=== PATIENT | female | born 1940 | race Two or more races ===

== ENCOUNTER 2024-07-03 18:42 | Emergency (ER) | payer MEDICARE, OTHER ==
[~2024-07-03] VITALS: Ht 149.9 cm; Wt 66.0 kg
[2024-07-03 18:57] VITALS: TEMP 98.8
[2024-07-03 19:17] LABS: BASOPHILS % (AUTO) 0.2 % (0.0-2.0); EOSINOPHILS % (AUTO) 1.4 % (1.0-6.0); HEMATOCRIT 34.4 % (36-46); HEMOGLOBIN 11.6 g/dL (12.0-16.0); LYMPHOCYTES # (AUTO) 0.8 K/uL (1.0-4.8); LYMPHOCYTES % (AUTO) 13.6 % (22.0-44.0); MEAN CORPUSCULAR HGB CONC 33.8 G/dL (31.0-37.0); MEAN CORPUSCULAR VOLUME 101 fL (80-100); MONOCYTES # (AUTO) 0.4 K/uL (0.1-1.0); MONOCYTES % (AUTO) 6.7 % (2.0-9.0); NEUTROPHILS # (AUTO) 4.8 K/uL (1.8-7.7); NEUTROPHILS % (AUTO) 78.1 % (40.0-70.0); PLATELET COUNT (AUTO) 177 K/uL (150-450); RED BLOOD CELL COUNT(AUTO) 3.42 MIL/uL (4.00-5.20); WHITE BLOOD COUNT (AUTO) 6.2 K/uL (4.5-11.0)
[2024-07-03 19:27] LABS: CALCIUM, TOTAL 8.5 mg/dL (8.8-10.5); CREATININE 0.99 mg/dL (0.60-1.30); POTASSIUM 4.1 mmol/L (3.5-5.1)
[2024-07-03 19:34] LABS: TROPONIN I-HIGH SENSITIVITY 5 ng/L (<51)
[2024-07-03 20:21] LABS: MAGNESIUM 2.1 mg/dL (1.80-2.40)
[2024-07-03 20:28] VITALS: BP 105/67; PULSE 80; RESP 16; O2SAT 97
== END 2024-07-03 21:14 | disposition home or self-care (01) ==
LOC: EMS 18:42
DX: R55 Syncope and collapse (principal); I10 Essential (primary) hypertension; E78.00 Pure hypercholesterolemia, unspecified; R73.9 Hyperglycemia, unspecified
CPT/HCPCS: 80048; 83735; 83880; 84484; 85025; 93005; 99284